=== PATIENT | male | born 1945 | race Caucasian/White ===

== ENCOUNTER 2018-05-27 21:34 | Emergency (ER) | payer OTHER, MEDICAID ==
[~2018-05-27] VITALS: Ht 175.3 cm; Wt 73.9 kg
[~2018-05-27 21:34] MED LIST: ATOR10TA PO; DILT300T11 PO; DOLU50TA PO; EMTR1TAB13 PO; LEVO500T2 PO; LOSA1TAB39 PO; PANT20TA2 PO
[2018-05-27] MEDS ORDERED: FUROSEMIDE 20 MG TABLET ONE (22:11)
[2018-05-27] MEDS ORDERED: OMEP20CA10 PO (22:14)
[2018-05-27] MEDS ORDERED: AMLO10TA7 PO (22:14)
[2018-05-27] MEDS ORDERED: FUROSEMIDE 20 MG TABLET PO ONE (22:15)
--- NOTE | 2018-05-27 22:16 | NUR ---
Patient discharged to home in stable conditon. Written and verbal after care instructions given. Patient verbalizes understanding of instructions. WALKED OUT OF ER WITH NO DISTRESS NOTED
[2018-05-27 22:17] VITALS: BP 145/77
== END 2018-05-27 22:18 | disposition home or self-care (01) ==
LOC: ER 21:37
DX: R60.9 Edema, unspecified (principal); K21.9 Gastro-esophageal reflux disease without esophagitis; E78.00 Pure hypercholesterolemia, unspecified; Z90.49 Acquired absence of other specified parts of digestive tract; Z79.1 Long term (current) use of non-steroidal anti-inflammatories (NSAID); Z79.899 Other long term (current) drug therapy
CPT/HCPCS: A4663

== ENCOUNTER 2022-11-20 17:58 | Emergency (ER) | payer OTHER ==
[~2022-11-20] VITALS: Ht 172.7 cm; Wt 73.5 kg
[~2022-11-20 17:58] MED LIST changes: +AMLO10TA59 PO; +OMEP20CA15 PO
[2022-11-20] MEDS ORDERED: PREG150C PO ×2 (19:05)
[2022-11-20] MEDS ORDERED: METO-357 PO (19:05)
[2022-11-20] MEDS ORDERED: ALFU10TA10 PO (19:05)
[2022-11-20] MEDS ORDERED: BICT1TAB PO (19:05)
[2022-11-20] MEDS ORDERED: LEVO100T10 PO (19:05)
[2022-11-20] MEDS ORDERED: SEMA3TAB PO (19:05)
[2022-11-20 21:48] LABS: BASOPHILS # (AUTO) 0.3 K/UL (0.0-0.2); BASOPHILS % (AUTO) 4.6 % (0.0-2.0); EOSINOPHILS # (AUTO) 0.3 K/uL (0.0-0.7); EOSINOPHILS % (AUTO) 4.2 % (0.0-7.0); HEMOGLOBIN 15.2 g/dL (12.5-16.3); LYMPHOCYTES # (AUTO) 3.8 K/uL (0.8-4.8); LYMPHOCYTES % (AUTO) 55.8 % (20.5-51.5); MEAN CORPUSCULAR HEMOGLOBIN 31.9 uug (23.8-33.4); MEAN CORPUSCULAR HGB CONC 34 g/dL (32.5-36.3); MEAN CORPUSCULAR VOLUME 94.2 fL (73.0-96.2); MONOCYTES # (AUTO) 0.6 K/uL (0.1-1.30); MONOCYTES % (AUTO) 8.3 % (0.0-11.0); NEUTROPHILS # (AUTO) 1.8 K/uL (1.8-8.9); NEUTROPHILS % (AUTO) 27.1 % (38.5-71.5); PLATELET COUNT (AUTO) 230 K/uL (152-348); RED BLOOD CELL COUNT(AUTO) 4.78 MIL/uL (4.06-5.63); RED CELL DISTRIBUTION WIDTH 13.9 % (12.1-16.2); WHITE BLOOD COUNT (AUTO) 6.8 K/uL (3.6-10.2)
[2022-11-20 21:50] LABS: DIFFERENTIAL COMMENT 1
[2022-11-20 21:58] LABS: CARBON DIOXIDE 29 mmol/L (21-32); CHLORIDE 105 mmol/L (98-107); CREATININE 1.5 mg/dL (0.6-1.3); GLUCOSE 93 mg/dL (74-106); POTASSIUM 3.1 mmol/L (3.5-5.1); SODIUM SERUM 143 mmol/L (136-145); UREA NITROGEN, BLOOD 21 mg/dL (7-18)
[2022-11-20] MEDS ORDERED: POTASSIUM BICARBONATE/CIT AC 25 MEQ TABLET.EFF PO ONE (22:30)
[2022-11-20] MEDS ORDERED: CYANOCOBALAMIN 1000 MCG/ML VIAL IM ONE (23:00)
[2022-11-20] MEDS ORDERED: POTASSIUM BICARBONATE/CIT AC 25 MEQ TABLET.EFF ONE (23:36)
[2022-11-20] MEDS ORDERED: CYANOCOBALAMIN 1000 MCG/ML VIAL ONE (23:37)
[2022-11-20 23:55] VITALS: BP 119/68; O2SAT 98
== END 2022-11-20 23:55 | disposition home or self-care (01) ==
LOC: ER 18:09
DX: E53.8 Deficiency of other specified B group vitamins (principal); E87.6 Hypokalemia; G31.84 Mild cognitive impairment of uncertain or unknown etiology; K21.9 Gastro-esophageal reflux disease without esophagitis; Z90.89 Acquired absence of other organs; Z79.899 Other long term (current) drug therapy
CPT/HCPCS: 36415; 70450; 83921; 85025; A4663; J3420